=== PATIENT | male | born 1990 | race Native Hawaiian/Other Pacific Islander ===

== ENCOUNTER 2017-01-26 01:22 | Emergency (ER) | payer SELFPAY ==
[~2017-01-26] VITALS: Ht 175.3 cm; Wt 72.0 kg
[2017-01-26 01:46] VITALS: BP 131/75; PULSE 100; RESP 16; TEMP 99.9; O2SAT 98
[2017-01-26] MEDS ORDERED: PSEU30TA (02:11)
[2017-01-26] MEDS ORDERED: AMOX500C PO (02:14)
[2017-01-26] MEDS ORDERED: CORTI10A LEFT EAR (02:14)
--- NOTE | 2017-01-26 02:15 | PD ---
HPI Chief Complaint: ENT Complaint Time Seen by Provider: 01:59 Travel History International Travel<30 days: No Contact w/Intl Traveler<30days: No Traveled to known affect area: No History of Present Illness HPI patient is a 26-year-old male student highly presents emergency Department with left ear pain and some mild bloody discharge. 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 He states he recently had a flight which she thinks triggered this earache. Denies any foreign body insertion her possibility of foreign body. Denies any sore throat or fevers. These symptoms been going on for the past 24- 48 hours and gradually worsening. PFSH Past Medical History Medical History: Denies Significant Hx Diminished Hearing: No Tetanus Vaccination: Unknown Influenza Vaccination: No Past Surgical History Surgical History: No Previous Surgery Social History Alcohol Use: No Tobacco Use: No Substance Use: No Allergies-Medications (Allergen,Severity, Reaction): Coded Allergies: No Known Allergies (Unverified , 01/26/17) Reported Meds & Prescriptions Reported Meds & Active Scripts Active Amoxicillin 500 Mg Cap 500 Mg PO BID 10 Days Lpninzxv-Yhqijhlai-YN Otic Drops (Neomycin/Polymyxin/Hydrocortisone) 1 % Soln 4 Drop LEFT EAR QID Reported Wal-Profen Cold & Sinus 30-200 mg (Pseudoephedrine-Ibuprofen) 200 Mg-30 Mg Tab Review of Systems Except as stated in HPI: all other systems reviewed are Neg Physical Exam Narrative GENERAL: Well-nourished, well-developed patient. SKIN: Focused skin assessment warm/dry. HEAD: Normocephalic. EYES: No scleral icterus. No injection or drainage. ENT: Oropharynx clear, right TM clear, canal clear. Left TM does show some bulging and erythema, left ear canal is likewise irritated and painful with ear speculum insertion. NECK: Supple, trachea midline. No JVD or lymphadenopathy. CARDIOVASCULAR: Regular rate and rhythm without murmurs, gallops, or rubs. RESPIRATORY: Breath sounds equal bilaterally. No accessory muscle use. GASTROINTESTINAL: Abdomen soft, non-tender, nondistended. MUSCULOSKELETAL: No cyanosis, or edema. BACK: Nontender without obvious deformity. No CVA tenderness. Data Data Last Documented VS Vital Signs Date Time Temp Pulse Resp B/P (MAP) Pulse Ox O2 Delivery O2 Flow Rate FiO2 01/26/17 02:30 74 18 132/76 (94) 100 01/26/17 01:46 99.9 MDM Medical Decision Making Medical Screen Exam Complete: Yes Emergency Medical Condition: Yes Differential Diagnosis otitis media, otitis externa, URI Narrative Course Patient roomed emergency department, highly with components of both otitis media and otitis externa. We'll cover for both. Discussed no flying until he is cleared by flight surgeon or his primary care physician after reexamination of his ears. Discussed the risk of TM rupture. Discussed symptomatic management returned ED criteria. Diagnosis Primary Impression: Otitis media Qualified Codes: H66.002 - Acute suppurative otitis media without spontaneous rupture of ear drum, left ear Additional Impression: Otitis externa Qualified Codes: H60.502 - Unspecified acute noninfective otitis externa, left ear Departure Forms: School Release, Return to School Date: Feb 02, 2017 Please excuse from school until (free text option): patient has been re- examined and the ear inflammation has subsided. This may be up to 10 days. Tests/Procedures Med/Other Pt SpecificInfo: Prescription(s) given Scripts Amoxicillin (Amoxicillin) 500 Mg Cap 500 MG PO BID for Infection for 10 Days, CAP 0 Refills Prov: Esvin Shaw MD 01/26/17 Qengyjvf-Mcvjrkwgf-RI Otic Drops (Isjjlfes-Vxvrxgcnh-DC Otic Drops) 1 % Soln 4 DROP LEFT EAR QID for Infection, #1 BOTTLE 0 Refills Prov: Esvin Shaw MD 01/26/17 Disposition: 01 DISCHARGE HOME Condition: Stable Esvin Shaw MD Jan 26, 2017 02:15
[2017-01-26 02:30] VITALS: BP 132/76
== END 2017-01-26 02:30 | disposition home or self-care (01) ==
LOC: PHED 01:22
DX: H66.002 Acute suppurative otitis media without spontaneous rupture of ear drum, left ear (principal); H60.502 Unspecified acute noninfective otitis externa, left ear
CPT/HCPCS: 99283

== ENCOUNTER 2017-02-04 23:15 | Emergency (ER) | payer SELFPAY ==
[~2017-02-04] VITALS: Ht 175.3 cm; Wt 69.4 kg
[~2017-02-04 23:15] MED LIST: AMOX500C PO; CORTI10A LEFT EAR; PSEU30TA
[2017-02-04 23:20] VITALS: BP 127/57; PULSE 75; RESP 16; TEMP 98.8; O2SAT 97
[2017-02-04] MEDS ORDERED: AUGM875T3 PO (23:47)
--- NOTE | 2017-02-04 23:47 | PD ---
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 The patient was seen on 01/26/17 and diagnosed with left otitis media as well as otitis externa. He was started on amoxicillin and neomycin eardrops. He reports that his symptoms feel improved, however he still has left ear pain and discomfort. He was given a note that he should not fly for 1 week by the provider from his previous ED visit. His note expires tomorrow, and he is afraid that he only unable to fly because of the pain in his ear and fear of tympanic membrane ruptured. Patient still feels some ringing in his ear. No fevers. He is unsure how the infection began. PFSH Past Medical History Diminished Hearing: No Social History Alcohol Use: No Tobacco Use: No Substance Use: No Allergies-Medications (Allergen,Severity, Reaction): Coded Allergies: No Known Allergies (Unverified , 02/04/17) Reported Meds & Prescriptions Reported Meds & Active Scripts Active Amoxicillin 500 Mg Cap 500 Mg PO BID 10 Days Dkqhtuhg-Dbdoivwib-SG Otic Drops (Neomycin/Polymyxin/Hydrocortisone) 1 % Soln 4 Drop LEFT EAR QID Reported Wal-Profen Cold & Sinus 30-200 mg (Pseudoephedrine-Ibuprofen) 200 Mg-30 Mg Tab Review of Systems Except as stated in HPI: all other systems reviewed are Neg Physical Exam Narrative GENERAL: Well-developed, well-nourished, pleasant, comfortable, no apparent distress. SKIN: Focused skin assessment warm/dry. HEAD: Atraumatic. Normocephalic. ENT: Left tympanic membrane is erythematous and bulging, no signs of perforation. Left external auditory canal is erythematous and slightly edematous with small amount of purulence. Right tympanic membrane and external auditory canals are normal. No anterior propulsion of pinna bilaterally. No mastoid tenderness. NECK: Trachea midline. No JVD. CARDIOVASCULAR: Regular rate and rhythm. RESPIRATORY: No accessory muscle use. NEUROLOGICAL: Awake and alert. No obvious cranial nerve deficits. Motor grossly within normal limits. Normal speech. PSYCHIATRIC: Appropriate mood and affect; insight and judgment normal. Data Data Last Documented VS Vital Signs Date Time Temp Pulse Resp B/P (MAP) Pulse Ox O2 Delivery O2 Flow Rate FiO2 02/04/17 23:20 98.8 75 16 127/57 (80) 97 MDM Medical Decision Making Medical Screen Exam Complete: Yes Emergency Medical Condition: Yes Medical Record Reviewed: Yes Differential Diagnosis Otitis media, otitis externa, mastoiditis unlikely Narrative Course Vital signs show heart rate 75, blood pressure 127/57, pulse ox 97% on room air , oral temp of 98.8F. Patient has signs of both otitis media and otitis externa in the left ear. He reports that his symptoms feel as though they have been improving on oral and topical antibiotics, however he does not think he should be flying an airplane tomorrow as scheduled. I agree with this and will write him a note that he should not fly for the next week. I will also given the name of the ENT physician coordinator of online programs with him to follow up with this week. He was encouraged to continue his oral and topical antibiotics. He was informed on when to return to the emergency department. He verbalizes understanding and agreement with plan. Diagnosis Primary Impression: Otitis media Qualified Codes: H66.42 - Suppurative otitis media, unspecified, left ear Additional Impression: Otitis externa Qualified Codes: H60.92 - Unspecified otitis externa, left ear Referrals: Michael Walton MD 3 days ENT Additional Instructions: Follow-up with ENT physician Dr. Walton or an ENT of your choice this week. Return to the emergency department for worsening symptoms or any other concerns. Scripts Amoxicillin-Clavulanate (Augmentin) 875-125 Mg Tab 1 TAB PO BID for Infection for 10 Days, #20 TAB 0 Refills Prov: Barney Duarte MD 02/04/17 Disposition: 01 DISCHARGE HOME Condition: Stable Barney Duarte MD Feb 04, 2017 23:47
[2017-02-05 00:08] VITALS: BP 130/60; TEMP 98.7
== END 2017-02-05 00:12 | disposition home or self-care (01) ==
LOC: PHED 23:15
DX: H66.42 Suppurative otitis media, unspecified, left ear (principal); H60.92 Unspecified otitis externa, left ear
CPT/HCPCS: 99283